=== PATIENT | male | born 1945 | race Caucasian/White ===

== ENCOUNTER 2020-08-13 03:41 | Observation (INO) ==
[2020-08-13] MEDS ORDERED: Naloxone 0.4 MG/ML INJ IVP PRN ×2 (05:49→10:34)
[2020-08-13] MEDS ORDERED: Perflutren Lipid Microsphere 1.3 ML in 0.9 % Sodium Chloride 8.7 ML IVP PRN ×2 (06:00→10:34)
[2020-08-13] MEDS ORDERED: Ringers Solution, Lactated 1,000 ML IVC SCH (06:00)
[2020-08-13] MEDS ORDERED: Ketorolac 15 MG/ML VIAL IVP PRN ×2 (06:03→10:34)
[2020-08-13 06:18] LABS: Basophils % 0.1 %; Eosinophils % 0.2 %; Immature Granulocytes % 0.4 % (0-4); Mean Platelet Volume 10.3 fL (9.4-12.4)
[2020-08-13 06:20] LABS: Hematocrit 40.7 % (37.5-50.1); Hemoglobin 13.2 g/dL (12.9-16.9); Immature Platelets 4.4 % (1.1-6.1); Lymphocytes # 0.9 K/mcL (0.6-4.6); Lymphocytes % 9.1 %; Mean Corpuscular HGB Conc 32.4 g/dL (31.6-35.5); Mean Corpuscular Hemoglobin 30.3 pg (28.0-33.3); Mean Corpuscular Volume 93.6 fL (83.0-100.0); Monocytes # 0.3 K/mcL (0.0-1.3); Monocytes % 3.1 %; Neutrophils # 8.5 K/mcL (1.6-8.9); Platelet Count 138 K/mcL (140-400); Red Blood Count 4.35 M/mcL (4.19-5.50); Red Cell Distribution Width 13.6 % (11.5-14.5); Segmented Neutrophils % 87.1 %; White Blood Count 9.8 K/mcL (4.3-11.1)
[2020-08-13 06:21] LABS: INR 1.2; Prothrombin Time 13.8 Seconds (9.4-12.1)
[2020-08-13] MEDS: Ondansetron 4 MG/2 ML VIAL IVP PRN ×2 (06:27→09:17)
[2020-08-13 06:34] LABS: Platelet Estimate Normal (Normal)
[2020-08-13 06:41] LABS: BUN/Creatinine Ratio 18 (6-26); Blood Urea Nitrogen 18 mg/dL (8-23); Calcium 10.3 mg/dL (8.6-10.3); Carbon Dioxide 24 mEq/L (23-29); Chloride 109 mEq/L (98-107); Glucose 126 mg/dL (70-105); Osmolality,Calculated 291 (280-300); Potassium 4.3 mEq/L (3.5-5.1); Sodium 139 mEq/L (136-145); eGFR For African Americans > 60 (> 60); eGFR For Non-African Americans > 60 (> 60)
[2020-08-13] MEDS ORDERED: *HR* HYDROmorphone PF 0.5 MG/0.5 ML SYRINGE IVP PRN (07:30)
[2020-08-13] MEDS ORDERED: *HR* FentaNYL (PF) 100 MCG/2 ML VIAL ONE (07:35)
[2020-08-13] MEDS ORDERED: *HR* Propofol 200 MG/20 ML VIAL IVP ONE (07:36)
[2020-08-13] MEDS ORDERED: *HR* Succinylcholine 200 MG/10 ML VIAL IVP ONE (07:38)
[2020-08-13] MEDS ORDERED: Ondansetron 4 MG/2 ML VIAL ONE (07:38)
[2020-08-13] MEDS ORDERED: Lidocaine -MPF 2% 2 ML VIAL ONE (07:38)
[2020-08-13] MEDS ORDERED: Dexamethasone 4 MG/ML VIAL ONE (07:38)
[2020-08-13] MEDS ORDERED: EPHEDrine 50 MG/ML VIAL ONE (07:43)
[2020-08-13] MEDS ORDERED: Isovue-300 50ML VIAL ONE (08:12)
[2020-08-13] MEDS ORDERED: Aspirin 81 MG TAB.CHEW PO SCH (09:00)
[2020-08-13] MEDS ORDERED: cefTRIAXone 1,000 MG in Water for inj. (sterile) 10 ML IVP SCH (09:00)
[2020-08-13] MEDS ORDERED: Lidocaine -MPF 4% 5 ML AMPUL ONE (09:13)
[2020-08-13] MEDS ORDERED: Scopolamine Patch 1.5 MG PATCH.TD72 ONE (09:19)
[2020-08-13] MEDS ORDERED: Acetaminophen IV 1,000 MG/100 ML INFUS..BTL ONE (09:21)
[2020-08-13] MEDS ORDERED: Scopolamine Patch 1.5 MG PATCH.TD72 TD ONE (09:22)
[2020-08-13] MEDS ORDERED: Lacri-Lube 3.5 GM TUBE ONE (09:41)
[2020-08-13] MEDS ORDERED: Ondansetron 4 MG/2 ML VIAL IVP PRN (10:34)
[2020-08-13] MEDS: Ringers Solution, Lactated 1,000 ML IVC SCH ×2 (10:44→17:35)
[2020-08-13 11:34] LABS: Hematocrit 40.4 % (37.5-50.1)
[2020-08-13] MEDS: Acetaminophen 325 MG TABLET PO PRN (21:28)
[2020-08-14 01:46] LABS: Hematocrit 39.2 % (37.5-50.1); Hemoglobin 12.3 g/dL (12.9-16.9); Mean Corpuscular HGB Conc 31.4 g/dL (31.6-35.5); Mean Corpuscular Hemoglobin 30.3 pg (28.0-33.3); Mean Corpuscular Volume 96.6 fL (83.0-100.0); Platelet Count 154 K/mcL (140-400); Red Blood Count 4.06 M/mcL (4.19-5.50); White Blood Count 11.2 K/mcL (4.3-11.1)
[2020-08-14 01:58] LABS: BUN/Creatinine Ratio 16 (6-26); Blood Urea Nitrogen 18 mg/dL (8-23); Calcium 9.9 mg/dL (8.6-10.3); Carbon Dioxide 22 mEq/L (23-29); Chloride 107 mEq/L (98-107); Glucose 112 mg/dL (70-105); Osmolality,Calculated 285 (280-300); Potassium 4.4 mEq/L (3.5-5.1); Sodium 136 mEq/L (136-145); eGFR For African Americans > 60 (> 60); eGFR For Non-African Americans > 60 (> 60)
[2020-08-14] MEDS: Aspirin 81 MG TAB.CHEW PO SCH (07:51)
[2020-08-14] MEDS: cefTRIAXone 1,000 MG in Water for inj. (sterile) 10 ML IVP SCH (07:52)
[2020-08-14] MEDS ORDERED: Lactulose Oral Soln 20 GM/30 ML UDC PO ONE (08:51)
[2020-08-14] MEDS ORDERED: Lactulose 200 GM, Sodium Chloride IRRigation 700 ML RC ONE (14:09)
[2020-08-15 05:51] LABS: Hematocrit 40.7 % (37.5-50.1); Hemoglobin 13.2 g/dL (12.9-16.9); Mean Corpuscular HGB Conc 32.4 g/dL (31.6-35.5); Mean Corpuscular Hemoglobin 30.3 pg (28.0-33.3); Mean Corpuscular Volume 93.6 fL (83.0-100.0); Mean Platelet Volume 10.8 fL (9.4-12.4); Platelet Count 136 K/mcL (140-400); Red Blood Count 4.35 M/mcL (4.19-5.50); Red Cell Distribution Width 13.6 % (11.5-14.5)
[2020-08-15 06:14] LABS: BUN/Creatinine Ratio 19 (6-26); Blood Urea Nitrogen 20 mg/dL (8-23); Calcium 10.5 mg/dL (8.6-10.3); Carbon Dioxide 25 mEq/L (23-29); Chloride 107 mEq/L (98-107); Glucose 99 mg/dL (70-105); Osmolality,Calculated 287 (280-300); Potassium 3.9 mEq/L (3.5-5.1); Sodium 137 mEq/L (136-145); eGFR For African Americans > 60 (> 60); eGFR For Non-African Americans > 60 (> 60)
[2020-08-15] MEDS: Acetaminophen 325 MG TABLET PO PRN (06:24)
[2020-08-15] MEDS: cefTRIAXone 1,000 MG in Water for inj. (sterile) 10 ML IVP SCH (09:43)
[2020-08-15] MEDS: Aspirin 81 MG TAB.CHEW PO SCH (09:44)
[2020-08-15 10:25] VITALS: BP 129/72
== END 2020-08-15 12:39 | disposition home or self-care (01) ==
LOC: 3ANU → SUATTDRO 05:18
PROVIDERS: ADMIT Family Medicine; ATTEND Family Medicine

== ENCOUNTER 2021-01-15 18:25 | Inpatient (IN) ==
[2021-01-15] MEDS ORDERED: Ondansetron 4 MG/2 ML VIAL IVP PRN (21:12)
[2021-01-15] MEDS: Dexamethasone 4 MG/ML VIAL IVP SCH (21:54)
[2021-01-15 22:09] LABS: Immature Granulocytes % 0.4 % (0-4)
[2021-01-15 22:11] LABS: Hematocrit 37.8 % (37.5-50.1); Immature Platelets 5.1 % (1.1-6.1); Lymphocytes # 0.6 K/mcL (0.6-4.6); Mean Corpuscular HGB Conc 34.4 g/dL (31.6-35.5); Mean Corpuscular Volume 90.2 fL (83.0-100.0); Monocytes # 0.3 K/mcL (0.0-1.3); Monocytes % 7.4 %; Red Blood Count 4.19 M/mcL (4.19-5.50); Red Cell Distribution Width 13.7 % (11.5-14.5); Segmented Neutrophils % 79.2 %; White Blood Count 4.5 K/mcL (4.3-11.1)
[2021-01-15 22:13] LABS: VBG HCO3 22 mEq/L (21-27); VBG PCO2 28 mmHg (41-51); VBG PO2 108 mmHg (25-50)
[2021-01-15 22:16] LABS: INR 1.2
[2021-01-15 22:31] LABS: Alanine Aminotransferase 24 Units/L (7-52); Albumin 3.6 g/dL (3.5-5.7); Albumin/Globulin Ratio 1.5 (1.1-2.2); Alkaline Phosphatase 70 Units/L (34-104); Aspartate Amino Transferase 34 Units/L (13-39); BUN/Creatinine Ratio 20 (6-26); Bilirubin,Total 0.6 mg/dL (0.3-1.0); Blood Urea Nitrogen 22 mg/dL (8-23); C-Reactive Protein 22 mg/L (Less than 10); Carbon Dioxide 22 mEq/L (23-29); Chloride 104 mEq/L (98-107); Globulin 2.4 g/dL (2.4-3.5); Glucose 108 mg/dL (70-105); Lactate Dehydrogenase 145 Units/L (140-271); Osmolality,Calculated 280 (280-300); Potassium 3.8 mEq/L (3.5-5.1); Sodium 133 mEq/L (136-145); Troponin I 0.03 ng/mL (< 0.04); eGFR For African Americans > 60 (> 60); eGFR For Non-African Americans > 60 (> 60)
[2021-01-15 22:40] LABS: Neutrophils # 3.6 K/mcL (1.6-8.9); Platelet Count 87 K/mcL (140-400)
[2021-01-15 22:42] LABS: Platelet Estimate Decreased (Normal)
[2021-01-15] MEDS: Acetaminophen 325 MG TABLET PO PRN (22:56)
[2021-01-16 03:35] LABS: Hematocrit 41.2 % (37.5-50.1); Hemoglobin 13.6 g/dL (12.9-16.9); Immature Platelets 4.3 % (1.1-6.1); Mean Corpuscular Hemoglobin 30.7 pg (28.0-33.3); Mean Platelet Volume 11.3 fL (9.4-12.4); Red Blood Count 4.43 M/mcL (4.19-5.50); Red Cell Distribution Width 13.8 % (11.5-14.5); White Blood Count 4.4 K/mcL (4.3-11.1)
[2021-01-16 03:54] LABS: BUN/Creatinine Ratio 20 (6-26); Blood Urea Nitrogen 23 mg/dL (8-23); Calcium 9.1 mg/dL (8.6-10.3); Carbon Dioxide 21 mEq/L (23-29); Chloride 104 mEq/L (98-107); Glucose 151 mg/dL (70-105); Osmolality,Calculated 285 (280-300); Potassium 4.3 mEq/L (3.5-5.1); Sodium 134 mEq/L (136-145); eGFR For African Americans > 60 (> 60); eGFR For Non-African Americans > 60 (> 60)
[2021-01-16] MEDS: *HR* Enoxaparin 40 MG/0.4 ML SYRINGE SQ SCH (04:56)
[2021-01-16] MEDS: Acetaminophen 325 MG TABLET PO PRN (04:57)
[2021-01-16] MEDS ORDERED: Saline Nasal Spray 44 ML BOTTLE NS PRN (07:29)
[2021-01-16] MEDS: Cholecalciferol (D-3) 1,000 UNIT (25MCG) TABLET PO SCH (08:54)
[2021-01-16] MEDS: Multivit/Ca/Min/Fe/FA 1 TAB TABLET PO SCH (08:54)
[2021-01-16] MEDS: Dexamethasone 4 MG/ML VIAL IVP SCH (08:54)
[2021-01-16] MEDS: Artificial Tears SOLN 15 ML BOTTLE BOTH EYES SCH ×2 (08:54→21:38)
[2021-01-16] MEDS: Ipratropium 1 PUFF INHALER IH SCH ×3 (09:31→22:04)
[2021-01-16] MEDS: Melatonin 3 MG TABLET PO PRN (21:43)
[2021-01-17 03:14] LABS: Immature Granulocytes % 0.2 % (0-4); Red Cell Distribution Width 13.7 % (11.5-14.5)
[2021-01-17 03:16] LABS: Hemoglobin 13.6 g/dL (12.9-16.9); Immature Platelets 4.8 % (1.1-6.1); Lymphocytes # 0.7 K/mcL (0.6-4.6); Lymphocytes % 11.6 %; Mean Corpuscular HGB Conc 33.2 g/dL (31.6-35.5); Mean Corpuscular Hemoglobin 30.6 pg (28.0-33.3); Mean Corpuscular Volume 92.3 fL (83.0-100.0); Mean Platelet Volume 11.3 fL (9.4-12.4); Monocytes # 0.4 K/mcL (0.0-1.3); Monocytes % 7.2 %; Platelet Count 102 K/mcL (140-400); Red Blood Count 4.44 M/mcL (4.19-5.50); White Blood Count 6.1 K/mcL (4.3-11.1)
[2021-01-17 03:25] LABS: Neutrophils # 4.9 K/mcL (1.6-8.9)
[2021-01-17 03:35] LABS: Alanine Aminotransferase 25 Units/L (7-52); Albumin 3.5 g/dL (3.5-5.7); Albumin/Globulin Ratio 1.3 (1.1-2.2); Alkaline Phosphatase 76 Units/L (34-104); Aspartate Amino Transferase 33 Units/L (13-39); BUN/Creatinine Ratio 30 (6-26); Bilirubin,Total 0.4 mg/dL (0.3-1.0); Blood Urea Nitrogen 31 mg/dL (8-23); C-Reactive Protein 12 mg/L (Less than 10); Calcium 9.6 mg/dL (8.6-10.3); Carbon Dioxide 22 mEq/L (23-29); Chloride 105 mEq/L (98-107); Globulin 2.7 g/dL (2.4-3.5); Glucose 136 mg/dL (70-105); Lactate Dehydrogenase 160 Units/L (140-271); Magnesium 1.8 mg/dL (1.6-2.6); Osmolality,Calculated 289 (280-300); Phosphorous 2.8 mg/dL (2.7-4.5); Potassium 4.4 mEq/L (3.5-5.1); Sodium 135 mEq/L (136-145); Total Protein 6.2 g/dL (6.4-8.9); eGFR For African Americans > 60 (> 60); eGFR For Non-African Americans > 60 (> 60)
[2021-01-17 03:52] LABS: Ferritin 375 ng/mL (20-250)
[2021-01-17] MEDS: Ipratropium 1 PUFF INHALER IH SCH ×4 (04:00→22:53)
[2021-01-17] MEDS: Acetaminophen 325 MG TABLET PO PRN ×4 (05:01→23:29)
[2021-01-17] MEDS: *HR* Enoxaparin 40 MG/0.4 ML SYRINGE SQ SCH (05:02)
[2021-01-17] MEDS: Dexamethasone 4 MG/ML VIAL IVP SCH (09:04)
[2021-01-17] MEDS: Furosemide 20 MG/2 ML VIAL IVP SCH (09:04)
[2021-01-17] MEDS: Multivit/Ca/Min/Fe/FA 1 TAB TABLET PO SCH (09:05)
[2021-01-17] MEDS: Finasteride 5 MG TABLET PO SCH (09:05)
[2021-01-17] MEDS: Artificial Tears SOLN 15 ML BOTTLE BOTH EYES SCH ×2 (09:05→21:46)
[2021-01-17] MEDS: Cholecalciferol (D-3) 1,000 UNIT (25MCG) TABLET PO SCH (09:05)
[2021-01-17] MEDS: Aspirin 81 MG TAB.CHEW PO SCH (09:05)
[2021-01-17] MEDS: Melatonin 3 MG TABLET PO PRN (21:46)
[2021-01-17] MEDS: Benzonatate 100 MG CAPSULE PO PRN (23:29)
[2021-01-18 02:00] LABS: Hemoglobin 13.6 g/dL (12.9-16.9); Immature Granulocytes % 0.4 % (0-4); Red Cell Distribution Width 13.6 % (11.5-14.5)
[2021-01-18 02:01] LABS: Basophils % 0.2 %; Hematocrit 41.6 % (37.5-50.1); Immature Platelets 6.7 % (1.1-6.1); Lymphocytes # 0.5 K/mcL (0.6-4.6); Mean Corpuscular HGB Conc 32.7 g/dL (31.6-35.5); Mean Corpuscular Volume 91.6 fL (83.0-100.0); Mean Platelet Volume 11.5 fL (9.4-12.4); Monocytes # 0.3 K/mcL (0.0-1.3); Monocytes % 6.1 %; Red Blood Count 4.54 M/mcL (4.19-5.50); Segmented Neutrophils % 82.3 %; White Blood Count 4.9 K/mcL (4.3-11.1)
[2021-01-18 02:02] LABS: Platelet Count 96 K/mcL (140-400)
[2021-01-18 02:21] LABS: Alanine Aminotransferase 28 Units/L (7-52); Albumin 3.6 g/dL (3.5-5.7); Albumin/Globulin Ratio 1.2 (1.1-2.2); Alkaline Phosphatase 68 Units/L (34-104); Aspartate Amino Transferase 33 Units/L (13-39); BUN/Creatinine Ratio 26 (6-26); Bilirubin,Total 0.6 mg/dL (0.3-1.0); Blood Urea Nitrogen 31 mg/dL (8-23); C-Reactive Protein 15 mg/L (Less than 10); Calcium 9.4 mg/dL (8.6-10.3); Carbon Dioxide 23 mEq/L (23-29); Chloride 101 mEq/L (98-107); Globulin 2.9 g/dL (2.4-3.5); Glucose 121 mg/dL (70-105); Lactate Dehydrogenase 196 Units/L (140-271); Magnesium 1.6 mg/dL (1.6-2.6); Osmolality,Calculated 280 (280-300); Phosphorous 2.4 mg/dL (2.7-4.5); Potassium 4.3 mEq/L (3.5-5.1); Sodium 131 mEq/L (136-145); Total Protein 6.5 g/dL (6.4-8.9); eGFR For African Americans > 60 (> 60); eGFR For Non-African Americans 58 (> 60)
[2021-01-18 02:38] LABS: Ferritin 427 ng/mL (20-250)
[2021-01-18] MEDS: Ipratropium 1 PUFF INHALER IH SCH ×4 (04:01→21:56)
[2021-01-18] MEDS: Benzonatate 100 MG CAPSULE PO PRN (06:03)
[2021-01-18] MEDS: *HR* Enoxaparin 40 MG/0.4 ML SYRINGE SQ SCH (06:03)
[2021-01-18] MEDS: Cholecalciferol (D-3) 1,000 UNIT (25MCG) TABLET PO SCH (10:18)
[2021-01-18] MEDS: Dexamethasone 4 MG/ML VIAL IVP SCH (10:18)
[2021-01-18] MEDS: Finasteride 5 MG TABLET PO SCH (10:18)
[2021-01-18] MEDS: Furosemide 20 MG/2 ML VIAL IVP SCH (10:18)
[2021-01-18] MEDS: Aspirin 81 MG TAB.CHEW PO SCH (10:18)
[2021-01-18] MEDS: Multivit/Ca/Min/Fe/FA 1 TAB TABLET PO SCH (10:18)
[2021-01-18] MEDS: Artificial Tears SOLN 15 ML BOTTLE BOTH EYES SCH ×2 (10:32→20:00)
[2021-01-18] MEDS: Acetaminophen 325 MG TABLET PO PRN (20:17)
[2021-01-19 03:25] LABS: Basophils % 0.2 %; Hematocrit 43.6 % (37.5-50.1); Immature Granulocytes % 0.4 % (0-4); Red Cell Distribution Width 13.6 % (11.5-14.5)
[2021-01-19 03:27] LABS: Hemoglobin 14.8 g/dL (12.9-16.9); Immature Platelets 6.2 % (1.1-6.1); Lymphocytes # 0.8 K/mcL (0.6-4.6); Mean Corpuscular HGB Conc 33.9 g/dL (31.6-35.5); Mean Corpuscular Hemoglobin 30.5 pg (28.0-33.3); Mean Corpuscular Volume 89.9 fL (83.0-100.0); Mean Platelet Volume 10.4 fL (9.4-12.4); Monocytes # 0.5 K/mcL (0.0-1.3); Monocytes % 11.1 %; Neutrophils # 3.4 K/mcL (1.6-8.9); Platelet Count 110 K/mcL (140-400); Red Blood Count 4.85 M/mcL (4.19-5.50); Segmented Neutrophils % 72.3 %; White Blood Count 4.7 K/mcL (4.3-11.1)
[2021-01-19 03:49] LABS: Alanine Aminotransferase 27 Units/L (7-52); Albumin 3.8 g/dL (3.5-5.7); Albumin/Globulin Ratio 1.2 (1.1-2.2); Alkaline Phosphatase 64 Units/L (34-104); Aspartate Amino Transferase 32 Units/L (13-39); BUN/Creatinine Ratio 32 (6-26); Bilirubin,Total 0.7 mg/dL (0.3-1.0); Blood Urea Nitrogen 36 mg/dL (8-23); C-Reactive Protein 22 mg/L (Less than 10); Calcium 9.7 mg/dL (8.6-10.3); Carbon Dioxide 24 mEq/L (23-29); Chloride 99 mEq/L (98-107); Globulin 3.2 g/dL (2.4-3.5); Glucose 121 mg/dL (70-105); Lactate Dehydrogenase 219 Units/L (140-271); Osmolality,Calculated 284 (280-300); Phosphorous 3.9 mg/dL (2.7-4.5); Potassium 4.4 mEq/L (3.5-5.1); Sodium 132 mEq/L (136-145); eGFR For African Americans > 60 (> 60); eGFR For Non-African Americans > 60 (> 60)
[2021-01-19 04:05] LABS: Ferritin 588 ng/mL (20-250)
[2021-01-19] MEDS: Ipratropium 1 PUFF INHALER IH SCH ×4 (04:20→22:32)
[2021-01-19] MEDS: *HR* Enoxaparin 40 MG/0.4 ML SYRINGE SQ SCH (05:31)
[2021-01-19] MEDS: Cholecalciferol (D-3) 1,000 UNIT (25MCG) TABLET PO SCH (09:51)
[2021-01-19] MEDS: Aspirin 81 MG TAB.CHEW PO SCH (09:51)
[2021-01-19] MEDS: Finasteride 5 MG TABLET PO SCH (09:51)
[2021-01-19] MEDS: Dexamethasone 4 MG/ML VIAL IVP SCH (09:52)
[2021-01-19] MEDS: Artificial Tears SOLN 15 ML BOTTLE BOTH EYES SCH ×2 (09:52→23:19)
[2021-01-19] MEDS: Multivit/Ca/Min/Fe/FA 1 TAB TABLET PO SCH (09:52)
[2021-01-19] MEDS ORDERED: Furosemide 40 MG/4 ML VIAL IVP ONE (16:04)
[2021-01-19] MEDS: Acetaminophen 325 MG TABLET PO PRN (17:09)
[2021-01-19] MEDS: Melatonin 3 MG TABLET PO PRN (21:14)
[2021-01-19] MEDS: polyethylene glycoL 3350 17 GM POWD.PACK PO SCH (23:19)
[2021-01-20] MEDS: Acetaminophen 325 MG TABLET PO PRN ×2 (00:22→06:44)
[2021-01-20 03:14] LABS: Mean Platelet Volume 11.1 fL (9.4-12.4)
[2021-01-20 03:15] LABS: Hematocrit 45.3 % (37.5-50.1); Hemoglobin 15.7 g/dL (12.9-16.9); Immature Platelets 5.8 % (1.1-6.1); Mean Corpuscular HGB Conc 34.7 g/dL (31.6-35.5); Mean Corpuscular Hemoglobin 31.1 pg (28.0-33.3); Mean Corpuscular Volume 89.7 fL (83.0-100.0); Red Blood Count 5.05 M/mcL (4.19-5.50); Red Cell Distribution Width 13.4 % (11.5-14.5); White Blood Count 6.2 K/mcL (4.3-11.1)
[2021-01-20] MEDS: Ipratropium 1 PUFF INHALER IH SCH ×2 (03:16→10:02)
[2021-01-20 03:38] LABS: BUN/Creatinine Ratio 36 (6-26); Blood Urea Nitrogen 43 mg/dL (8-23); Carbon Dioxide 23 mEq/L (23-29); Chloride 97 mEq/L (98-107); Glucose 124 mg/dL (70-105); Magnesium 2.1 mg/dL (1.6-2.6); Osmolality,Calculated 286 (280-300); Potassium 4.3 mEq/L (3.5-5.1); Sodium 132 mEq/L (136-145); eGFR For African Americans > 60 (> 60); eGFR For Non-African Americans 59 (> 60)
[2021-01-20] MEDS: *HR* Enoxaparin 40 MG/0.4 ML SYRINGE SQ SCH (05:07)
[2021-01-20 07:25] VITALS: BP 131/79
[2021-01-20] MEDS: Cholecalciferol (D-3) 1,000 UNIT (25MCG) TABLET PO SCH (09:04)
[2021-01-20] MEDS: Aspirin 81 MG TAB.CHEW PO SCH (09:04)
[2021-01-20] MEDS: Finasteride 5 MG TABLET PO SCH (09:04)
[2021-01-20] MEDS: Multivit/Ca/Min/Fe/FA 1 TAB TABLET PO SCH (09:04)
[2021-01-20] MEDS: Dexamethasone 4 MG/ML VIAL IVP SCH (09:04)
[2021-01-20] MEDS: polyethylene glycoL 3350 17 GM POWD.PACK PO SCH (09:05)
[2021-01-20] MEDS: Artificial Tears SOLN 15 ML BOTTLE BOTH EYES SCH (09:05)
[2021-01-20] MEDS ORDERED: Acetaminophen IV 1,000 MG/100 ML BAG IVPB ONE (09:52)
[2021-01-20] MEDS ORDERED: Furosemide 40 MG/4 ML VIAL IVP ONE ×2 (10:00→11:30)
[2021-01-20] MEDS: Furosemide 20 MG/2 ML VIAL IVP SCH (10:16)
== END 2021-01-20 12:39 | disposition short-term general hospital (02) | DRG 177 ==
LOC: 2NENU → SUATTDRO 21:50 → 3BNU 01-19 01:18
PROVIDERS: ADMIT Internal Medicine; ATTEND Student in an Organized Health Care Education/Training Program